=== PATIENT | female | born 1950 | race Caucasian/White ===

== ENCOUNTER 2016-11-23 08:36 | Emergency (ER) | payer OTHER ==
[~2016-11-23] VITALS: Ht 160 cm; Wt 75.0 kg
[~2016-11-23 08:36] MED LIST: INSU100C8 SQ; INSU100V4 SQ; SIMV80TA PO; SYN.1T2 PO; VALS1TAB22 PO
[2016-11-23 08:44] VITALS: BP 204/91; PULSE 109; RESP 20; O2SAT 100
--- NOTE | 2016-11-23 09:01 | ED.REPORT ---
HPI-URI / Cough / Cold Date of Service November 23, 2016 ED Provider: Paul Naidu MD A 66 year female with a history of anxiety, sleep apnea, diabetes and distant asthma presents to the ED complaining of a cough. The pt experienced cold-like symptoms in mid-September and still had a cough two weeks later. She was seen by her PCP in early October and placed on antibiotics. However she is still experiencing a "spasm-like" cough accompanied by shortness of breath with moderate exertion. The pt states that these symptoms feel similar to when she had asthma in the past. She also reports that her blood pressure has been elevated for the last few months but is unsure if this is related. The pt does not experience shortness of breath at rest and denies fever, diaphoresis, chills or chest pain. The pt has an appointment on 12/08/2016 to address her symptoms. Nursing Notes Stated Complaint: COUGH/SOB Chief Complaint: Respiratory Complaints Nursing Notes Reviewed: Yes ([employer], meds not reconciled) Allergies: Coded Allergies: TAPE (Verified Allergy, Severe, Blisters, 09/05/09) Penicillins (Verified Allergy, Unknown, 11/23/16) Scheduled Ascorbate Calcium (Vitamin C) 500 Mg Tablet 500 MG PO BID Ferrous Sulfate (Ferrous Sulfate) 325 Mg Tablet 325 MG PO BID Insulin Aspart-Expunged Drug, Do Not Renew! (Novolog-Expunged Drug, Do Not Renew !) 100 U/Ml Cartridge 0 SQ PRN sliding scale Insulin Detemir-Expunged Drug, Do Not Renew! (Levemir-Expunged Drug, Do Not Renew!) 100 U/Ml Vial 32 U SQ HS varies Levothyroxine-Expunged Drug, Do Not Renew! (Synthroid-Expunged Drug, Do Not Renew!) 100 Mcg Tablet 100 MCG PO DAILY Simvastatin-Expunged Drug, Choose New Med! (Simvastatin-Expunged Drug, Choose New Med!) 80 Mg Tablet 80 MG PO HS Valsartan/HCTZ-Expunged Drug, Do Not Renew! (Diovan HCT 160-25 Expunged Do Not Renew!) 1 Tab Tablet 1 TAB PO AM Scheduled PRN Docusate Sodium (Colace) 100 Mg Capsule 200 MG PO DAILY PRN PRN For Constipation General Time Seen by MD: 08:56 Chief Complaint Other (Cough) Hx Obtained From: Patient Arrived By: Walk-in Onset Occurred: More than a week ago... Symptom Duration: Since onset Recent Healthcare: No recent hospitalization, Recent doctor visit Similar Sx Previous: Yes Past Medical History Past Medical History diabetes anxiety sleep apnea heart murmur distant asthma Past Surgical History none reported Smoking History Never Smoker Ambulatory Status Independent Review of Systems Constitutional: Denies: Chills, Fever Respiratory: Reports: Non-productive cough, Shortness of breath Skin: Denies Diaphoresis, Denies Rash Complete sys rev & neg: except as marked. Musculoskeletal: Denies: Back pain, Neck pain Physical Exam Initial Vital Signs Vital Signs (First) Date Time Temp Pulse Resp B/P Pulse Ox O2 Delivery O2 Flow Rate FiO2 11/23/16 08:44 36.3 109 20 204/91 100 Room Air Initial VS: Reviewed, Vital signs abnormal General/Constitutional: Awake, Alert mild hacking cough in the room ENT: Atraumatic, Airway patent, Mucous membranes moist Respiratory / Chest: Atraumatic, Breath sounds NL, Breath sounds = bilat, No respiratory distress Head / Eyes: Atraumatic, Normocephalic, PERRL, EOMI Neck: Atraumatic, Supple, Full range of motion Cardiovascular: Heart rate NL, Regular rhythm 3/6 heart murmur Abdomen: Atraumatic, Soft, Non-tender Skin: Atraumatic, Color NL, No rash, Warm, Dry Neurologic: Oriented X3, Speech NL, No motor deficits, No sensory deficits Back: Atraumatic, Full range of motion Upper Extremity / MS: Atraumatic, Full range of motion Lower Extremity / Pelvis / MS: Atraumatic, Full range of motion Rectum / Perineum: Atraumatic brown stool, heme negative guaiac negative Psychiatric: Affect NL, Mood NL Interpretation & Diagnostics Lab Results Interpretation Result Diagram: 11/23/16 0938 11/23/16 0938 Test 11/23/16 09:38 11/23/16 10:20 White Blood Count 7.9th/mm3 (3.8-10.1) Red Blood Count 3.56mil/mm3 (3.90-5.20) Hemoglobin 6.6g/dL (12.0-15.6) Hematocrit 24.0% (35.0-46.0) Mean Corpuscular Volume 67.4fL (81-100) Mean Corpuscular Hemoglobin 18.5pg (27.0-35.0) Mean Corpuscular Hemoglobin Concent 27.5% (32.0-37.0) Red Cell Distribution Width 18.7% (12.3-15.4) Platelet Count 380bil/L (150-400) Neutrophils (%) (Auto) 71.4% (40-74) Lymphocytes (%) (Auto) 16.5% (14-46) Monocytes (%) (Auto) 9.0% (4-12) Eosinophils (%) (Auto) 2.2% (0-5) Basophils (%) (Auto) 0.5% (0-3) Reticulocyte Count,Calculated 3.0% (0.6-2.6) Prothrombin Time 10.5sec (8.1-12.5) Prothromb Time International Ratio 0.98ratio Activated Partial Thromboplast Time 24.7sec (22.8-33.0) D-Dimer < 0.50mg/L FEU (<0.50) Sodium Level 137mEq/L (134-144) Potassium Level 3.7mEq/L (3.5-5.2) Chloride Level 99mEq/L (97-108) Carbon Dioxide Level 22mmol/L (18-29) Blood Urea Nitrogen 20mg/dL (8-27) Creatinine 0.56mg/dL (0.57-1.00) Estimat Glomerular Filtration Rate 156mL/min (>59) Glucose Level 268mg/dL (60-99) Calcium Level 9.2mg/dL (8.5-10.1) Iron Level 17ug/dL (35-150) Total Iron Binding Capacity 415ug/dL (250-450) Percent Iron Saturation 4%sat (15-50) Unsaturated Iron Binding 397.5ug/dL Ferritin 3ng/mL (13-150) Total Bilirubin 0.3mg/dL (0.0-1.2) Aspartate Amino Transf (AST/SGOT) 23U/L (0-50) Alanine Aminotransferase (ALT/SGPT) 20U/L (0-32) Alkaline Phosphatase 104U/L (25-165) Troponin T 0.010ug/L (0.0-0.011) Pro-B-Type Natriuretic Peptide 13.88pg/mL (0-287) Total Protein 7.0g/dL (6.4-8.4) Albumin 4.1g/dL (3.4-5.0) Hold Purple Top Tube Received (Received) Hold [place] Top Tube Received (Received) Lab Results Interpretation: CBC severe anemia CMP mild hyperglycemia Anemia studies suggestive of iron deficiency anemia ECG Interpretation ECG Interpretation: normal sinus rythm with a rate of 99 no abnormalities Time: 09:38 Interpreted by: ED physician X-Ray Chest Interpretation Chest Xray Interpretation: IMPRESSION: No acute process. Dictated by: Alysha Myers M.D. on 11/23/2016 at 10:02 Approved by: Alysha Myers M.D. on 11/23/2016 at 10:03 Interpretation / Wet Read by: Interpret - Radiologist Re-Eval/Medical Decision Med Decision/Clinical Course This is a 66-year-old female presents with a chief complaint of a mild tickling cough, but also fatigued with increasing dyspnea on exertion. She points out C normal commode long, just did not have the energy and felt short of breath when she tried to mow the lawn. She reports she was seen a month ago and had a chest x-ray that was negative, but symptoms just do not seem right stitches come to the ED. She had no additional complaints. She has no previous history of anemia, she denies history of GI bleed or dyspepsia, reports she has had prior negative colonoscopies-but has never had upper endoscopy. She does use NSAIDs intermittently not infrequently for various muscle skeletal pain. On initial interview she indicates she had a distant history of childhood asthma and wonders she might just need an inhaler. Right so she came in. She denies chest pain. She denies diaphoresis. She denies near-syncope and has no other complaints. On exam she is slightly anxious, but otherwise appears fairly well. No audible bronchospasm is evident on her exam. No edema or findings of venous thromboembolism are evident. At this point a workup was pursued. EKG was normal, chest x-ray was normal. Blood work however is notable for severe anemia which likely explain her fatigue and her dyspnea on exertion. D-dimer was negative. A guaiac rectal exam was brown stool heme-negative. I sent the anemia panel which returned suggestive of iron deficiency anemia. Given the severity of her anemia, and my need for assistance interpreting anemia panel and discussed the case with the portfolio architect vp construction Dr. Hines who is helpful in indicating that he agrees if the laboratories suggest iron deficiency anemia, that he would recommend initiating her on ferrous sulfate 325 mg twice a day if tolerated outside of constipation and nausea, that he would recommend PCP follow -up, and despite all this would recommend GI consultation for further evaluation. He did not think that this level of anemia requires hematology referral at this time. I then discussed the case with the on-call provider for the patient's PCP to facilitate sad follow-up and workup. Discharge on the course of iron-and Dr. Hines med and vitamin C be taken simultaneously facilitate absorption, so this too was recommended to the patient. The patient does not appear toxic, they have normal hemodynamics, they all fatigue or able to do their activities-and this all appears to be a very chronic process- therefore not finding indication for acute admission and the patient seems a reasonable candidate for outpatient management. Source of Hx: Old records Re-Evaluation/Progress #1: Time of Eval: 10:01 Re-Evaluation/Progress Note: Pt rechecked, who is stable. She is informed of her lab results and rectal examination is performed. Re-Evaluation/Progress #2: Time of Eval: 11:31 Patient Status: Condition improved Re-Evaluation/Progress Note: Pt rechecked, who is comfortable. The diagnosis and plan for discharge are discussed. The pt understands and agrees with the plan. All questions are addressed at this time. Consultation #1: Referral / Consult Name: Maxx Hines MD Consulted With: Stone Repairer Call Returned at: 11:17 Note: Consulted with Dr. Hines, hematology, regarding pt's case. Dr. Hines recommends follow up with PCP and GI. Consultation #2: Referral / Consult Name: Teddy Ndiaye MD Call Returned at: 11:25 Concrete Mixing Plant Superintendent: Agrees with eval, Agrees with plan Note: Spoke with Dr. Ndiaye, vp construction for Dr. Vegas, regarding pt's case. Dr. Ndiaye agrees with the evaluation and plan. Counseled Regarding: Diagnosis, Lab results, Need for follow-up, When/why to return to ED Discharge & Departure Impression: Primary Impression: Anemia Anemia type: iron deficiency Iron deficiency anemia type: unspecified iron deficiency Qualified Code: D50.9 - Iron deficiency anemia, unspecified Disposition: Home Discharge Condition All VS Reviewed: Yes Condition: Stable Additional Instructions: 1. Your heart and lung tests were normal. 2. I am not finding indication of asthma as the cause of your symptoms and shortness of breath with exertion-instead your tests demonstrate fairly severe iron deficiency anemia with a hematocrit of 24. 3. The next steps is to start iron replacement: Take ferrous sulfate 325 mg twice a day. Note: This medication can cause some constipation, you can take a stool softener, and if he developed constipation back off to once a day. Additionally we recommend taking vitamin C 500 mg with each dose of iron sulfate as this helps facilitate the bodies of obstruction and use of the supplemental iron. 4. I have talked with the portfolio architect, they recommend following up with your primary care physician, and they do recommend a consultation with GI for upper endoscopy to help make sure there is not any GI loss of blood, even though your guaiac studies in the department were negative any blood in her stool. Your PCP can help set this up. 5. Return if new or worsening symptoms. 6. Call Dr. Vegas's office tomorrow to schedule an appointment this week. Referrals: Holland Vegas MD (PCP) Jaeibgerardo Attestation Portions of this note were transcribed by Travis Parry. I, Dr. Naidu personally performed the history, physical exam and medical decision-making; I reviewed and confirmed the accuracy of the information in the transcribed note. Signed by: Alyssa Prieto, 11/23/2016 and 1135. copies to: Holland Vegas MD, Matthew F MD November 23, 2016 09:01 TRAVIS PARRY November 23, 2016 09:16
[2016-11-23] MEDS ORDERED: Albuterol HFA 60 Puff 8 Gm Inhaler INHALATION ONE (09:20)
[2016-11-23 09:45] LABS: BASOPHILS % (AUTO) 0.5 % (0-3); EOSINOPHILS % (AUTO) 2.2 % (0-5); Mean Corpuscular Hemoglobin 18.5 pg (27.0-35.0); Mean Corpuscular Volume 67.4 fL (81-100); NEUTROPHILS % (AUTO) 71.4 % (40-74); Platelet Count 380 bil/L (150-400)
[2016-11-23 09:59] VITALS: BP 149/69; PULSE 103; O2SAT 98
--- NOTE | 2016-11-23 10:04 | DRSVH ---
PROCEDURE: X-RAY CHEST, TWO VIEWS ([id number]) INDICATIONS: cough, SOB TECHNIQUE: 2 views of the chest were acquired. COMPARISON: [facility], , CHEST 1VW (PORTABLE), 09/12/2009, 16:11. FINDINGS: Surgical changes and devices: Surgical clips within the left inferior neck. Lungs and pleura: No pleural effusions or pneumothorax. Lungs are clear. Mediastinum: Mediastinal contours are normal. Heart size is normal. Bones and chest wall: No suspicious bony abnormalities. Soft tissues appear unremarkable. IMPRESSION: No acute process. Dictated by: Alysha Myers M.D. on 11/23/2016 at 10:02 Approved by: Alysha Myers M.D. on 11/23/2016 at 10:03
[2016-11-23 10:08] LABS: TROPONIN T 0.01 ug/L (0.0-0.011)
[2016-11-23 10:11] LABS: INR 0.98 ratio
[2016-11-23 10:42] LABS: Unsaturated Iron Binding 397.5 ug/dL
[2016-11-23] MEDS ORDERED: FERR-83 PO (11:26)
[2016-11-23] MEDS ORDERED: ASCO-294 PO (11:29)
[2016-11-23] MEDS ORDERED: DOCU-41 PO (11:29)
[2016-11-23 11:52] VITALS: BP 150/74; PULSE 98; RESP 17; O2SAT 98
[2017-01-01] MEDS ORDERED: LEVO100T97 PO (09:12)
[2017-01-01] MEDS ORDERED: LOSA100T3 PO (09:12)
[2017-01-01] MEDS ORDERED: SIMV80TA4 PO (09:12)
[2017-01-01] MEDS ORDERED: HYDR-4003 PO (09:12)
[2017-01-01] MEDS ORDERED: GLIP2.5T2 PO (09:12)
[2017-01-01] MEDS ORDERED: INSU100I18 SUBQ (09:12)
[2017-01-01] MEDS ORDERED: CALC600T12 PO (09:12)
[2017-01-01] MEDS ORDERED: ASPI-973 PO (09:12)
[2017-01-01] MEDS ORDERED: MULT-1018 PO (09:12)
[2017-01-01] MEDS ORDERED: OMEP20TA86 PO (09:12)
[2017-01-01] MEDS ORDERED: HYDR25TA4 PO (09:12)
[2017-01-01] MEDS ORDERED: OMEG-38 PO (09:12)
[2017-01-01] MEDS ORDERED: NPH,100V11 SUBQ (09:12)
== END 2016-11-23 11:45 | disposition home or self-care (01) ==
LOC: SED 08:36
DX: D50.9 Iron deficiency anemia, unspecified (principal); R05 Cough; R06.02 Shortness of breath; E11.9 Type 2 diabetes mellitus without complications; J45.909 Unspecified asthma, uncomplicated; Z79.4 Long term (current) use of insulin; Z88.0 Allergy status to penicillin

== ENCOUNTER 2017-01-02 08:35 | Day surgery (SDC) | payer OTHER ==
[~2017-01-02] VITALS: Ht 160 cm; Wt 75.0 kg
[~2017-01-02 08:35] MED LIST changes: +0.9% Sodium Chloride 1,000 ML IV SCH; +ASPI-973 PO; +CALC600T12 PO; +GLIP2.5T2 PO; +HYDR-4003 PO; +HYDR25TA4 PO; -INSU100C8 SQ; +INSU100I18 SUBQ; -INSU100V4 SQ; +LEVO100T97 PO; +LOSA100T3 PO; +MULT-1018 PO; +NPH,100V11 SUBQ; +OMEG-38 PO; +OMEP20TA86 PO; -SIMV80TA PO; +SIMV80TA4 PO; -SYN.1T2 PO; +Sodium Chloride LOK Flush 10 mL Syringe IV PRN; -VALS1TAB22 PO; +fentaNYL-PF 50 mCg/mL 2 mL Inj IVPUSH PRN
[2017-01-02 09:05] VITALS: BP 163/96; PULSE 100; RESP 16; O2SAT 97
[2017-01-02 09:58] VITALS: BP 138/70; PULSE 87; RESP 14; O2SAT 98
[2017-01-02 10:09] VITALS: BP 130/69; PULSE 78; RESP 14; O2SAT 94
[2017-01-02 10:14] VITALS: BP 146/74; PULSE 97; RESP 14; O2SAT 96
--- NOTE | 2017-01-02 12:14 | ENDO ---
[address] [address] ENDOSCOPY PROCEDURE PATIENT: VIKAS MATHIS : 1950 MR#: [id number] ADMIT: 01/02/2017 JOB ID: [id number] DATE OF SERVICE: 01/02/2017 OPERATION: Esophagogastroduodenoscopy with biopsy and hot snare polypectomy x3. PREOPERATIVE DIAGNOSIS(ES): Iron deficiency anemia. POSTOPERATIVE DIAGNOSIS(ES): 1. Mild nonerosive gastritis, biopsied. 2. There were three 1 cm gastric polyps that were seen, two in the body and one in the cardia, all removed by hot snare polypectomy follow up by three hemoclips placed at the post polypectomy site in the body and also one hemoclip placed at post polypectomy site in the cardia. ANESTHESIA: Fentanyl 175 mcg, versed 8 mg IV administered. COMPLICATIONS: None. BLOOD LOSS: Minimal. DESCRIPTION OF PROCEDURE: After risks and benefits were explained to the patient, informed consent was obtained. After anesthesia administered, upper endoscope was inserted into the mouth, intubated into the esophagus, stomach, second portion of duodenum, and mucosa carefully examined. After procedure was done, the scope was withdrawn and procedure terminated. FINDINGS: Upon inspection of esophagus, esophagus was normal without masses, ulcers, or lesions. Z-line located 40 cm from incisors. Upon entry of the stomach, there was mild nonerosive gastritis that was seen. There were also three 1 cm polyps, two in the body and one in the cardia, all removed by hot snare polypectomy. Three hemoclips placed at the post polypectomy site in the body and one hemoclip placed in the cardia at the post polypectomy site given the fact that there was slight oozing afterwards. There was no bleeding at the post polypectomy site of one polyp in the body. Duodenal bulb, first and second portion normal. Biopsies taken of the antrum, body, and duodenum. IMPRESSIONS: 1. Mild nonerosive gastritis, status post biopsy. 2. There were three 1 cm polyps in the stomach, two in the body, one in the cardia, status post hot snare polypectomy x3 followed by three hemoclips placed at the post polypectomy site in the body and one hemoclip placed at the cardia post polypectomy site. RECOMMENDATION: Await pathology results. Continue antireflux medication. Follow up in GI clinic as needed. Await colonoscopy.
--- NOTE | 2017-01-06 15:52 | PATH ---
SURGICAL PATHOLOGY Attending Physician:Can Curtis MD CASE STATUS: Signed Out PATIENT NAME: VIKAS MATHIS PID: [id number] : 1950 DATE COLLECTED:01/02/2017 18:11 SPECIMEN: 1: Duodenum, Biopsy 2: Stomach, Antrum, Biopsy 3: Gastric, Biopsy 4: Stomach, Polyp, Biopsy CLINICAL HISTORY: 1). DUODENUM 2). GASTRIC ANTRUM (RULE OUT H.PYLORI) 3). GASTRIC BODY 4). GASTRIC POLYP X3 BODY,CARDIA FINAL DIAGNOSIS: 1.DUODENUM BIOPSY: FRAGMENTS OF NORMAL-APPEARING SMALL BOWEL MUCOSA. Normal delicate mucosal villi present. Negative for significant inflammation, dysplasia and malignancy. 2.GASTRIC ANTRUM BIOPSY: MILD CHRONIC GASTRITIS INVOLVING ANTRAL MUCOSA. Negative for evidence of Helicobacter on H&E stain. Negative for intestinal metaplasia. Negative for dysplasia and malignancy. 3.GASTRIC BODY BIOPSY: MODERATE CHRONIC ACTIVE GASTRITIS INVOLVING FUNDIC MUCOSA. Negative for Helicobacter by immunohistochemistry. Negative for intestinal metaplasia. Negative for dysplasia and malignancy. 4.GASTRIC POLYPS: BENIGN INFLAMMATORY RETENTION POLYPS, NEGATIVE FOR ATYPIA. Negative for Helicobacter pylori by immunohistochemistry. Negative for intestinal metaplasia by Alcian blue stain. Negative for dysplasia and malignancy. ICD10 code K29.70 GROSS DESCRIPTION: The specimens are received in formalin, labeled with the patient's name, and sublabeled as the following: (1) duodenum biopsy; (2) gastric antrum + r/o H. pylori; (3) gastric body; (4) gastric polypsx3. (1) The specimen consists of multiple fragments of hernandez-white glistening semitranslucent tissue (0.8 x 0.4 x 0.1 cm in aggregate). Section code: (1A) tissue. Specimen entirely submitted. (2) The specimen consists of multiple fragments of hernandez-white glistening semitranslucent tissue (0.7 x 0.3 x 0.1 cm in aggregate). Section code: (2A) tissue. Specimen entirely submitted. (3) The specimen consists of a fragment of hernandez-white glistening semitranslucent tissue (0.7 x 0.2 x 0.1 cm).). Section code: (3A) tissue. Specimen entirely submitted. (4) The specimen consists of 3 hernandez rubbery glistening sessile polyps (1.1 x 0.9 x 0.6 cm-2.1 x 1.3 x 0.7 cm). Ink code: black-resection margin. Section code: (4A-4C) one polyp in each cassette, longitudinally sectioned. Specimen entirely submitted. 01/03/17 MICRO DESCRIPTION: This test was developed and its performance characteristics determined by [facility]. It has not been cleared or approved by the U. S. Food and Drug Administration. The FDA has determined that such clearance or approval is not necessary. This test is used for clinical purposes. It should not be regarded as investigational or for research. ICD-9 CODES: CPT CODES: 1: 34948 2: 40878 3: 29548, 33429 4: 27136, 05408, 81536 Electronically Signed Out Odin Trejo MD [facility]ology [facility] [address], [place] [address] Technical component performed at [facility], [address], [place], [address]
== END 2017-01-02 23:59 | disposition home or self-care (01) ==
LOC: END 08:35
PROVIDERS: ATTEND Internal Medicine Gastroenterology
DX: K31.7 Polyp of stomach and duodenum (principal); K29.50 Unspecified chronic gastritis without bleeding; D50.9 Iron deficiency anemia, unspecified; G47.33 Obstructive sleep apnea (adult) (pediatric); E03.9 Hypothyroidism, unspecified; D86.9 Sarcoidosis, unspecified; Z86.010 Personal history of colon polyps; J45.909 Unspecified asthma, uncomplicated; E11.9 Type 2 diabetes mellitus without complications; Z79.4 Long term (current) use of insulin; Z79.84 Long term (current) use of oral hypoglycemic drugs
CPT/HCPCS: 43239; 43251; 99153; G0500; J2250; J3010; J7030